=== PATIENT | female | born 1975 | race African-American/Black ===

== ENCOUNTER 2024-06-20 18:37 | Emergency (ER) | payer SELFPAY ==
[2024-06-20] MEDS ORDERED: Ketorolac Tromethamine 30 MG (1 mL) VIAL ONE (19:33)
[2024-06-20] MEDS ORDERED: HYDROcodone/Acetaminophen 10/325 mg Tablet ONE (19:34)
== END 2024-06-20 19:53 | disposition home or self-care (01) ==
LOC: ERS 18:37
DX: S39.012A Strain of muscle, fascia and tendon of lower back, initial encounter (principal); F17.210 Nicotine dependence, cigarettes, uncomplicated; I10 Essential (primary) hypertension; X58.XXXA Exposure to other specified factors, initial encounter
CPT/HCPCS: 96372; 99282; J1885